=== PATIENT | male | born 2000 | race Caucasian/White ===

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

== ENCOUNTER 2023-03-20 20:14 | Emergency (ER) | payer OTHER, SELFPAY | END 2023-03-20 21:20 | disposition home or self-care (01) | LOC: CSHERS 20:14 | DX: S62.326A Displaced fracture of shaft of fifth metacarpal bone, right hand, initial encounter for closed fracture (principal); W22.8XXA Striking against or struck by other objects, initial encounter | CPT/HCPCS: 26600 ==